=== PATIENT | male | born 1995 | race Caucasian/White ===

== ENCOUNTER → 2023-01-17 15:12 | Outpatient (CLI) | payer BC, SELFPAY ==
--- NOTE | ~2023-01-17 | MR_ITS ---
EXAMINATION: MR shoulder LT wo con DATE: 01/17/2023 15:56 INDICATION: left shoulder dislocation . TECHNIQUE: Magnetic resonance imaging (MRI) of the left shoulder was performed without intravenous co ntrast. Sequences included axial PD-weighted FS FSE, coronal oblique PD-weighted FS FSE and T2-weight ed FS FSE, and sagittal oblique T2-weighted FS FSE and T1-weighted FSE. COMPARISON: None. FINDINGS: Coracoacromial arch: Mild lateral downsloping of the type I acromion. Mild acromial tip enthesopathy. Mild subacromial abdoul rowing. Rotator cuff: Intact. Biceps tendon and glenoid labrum: The long and short heads of the biceps are intact. Large anterior glenoid tear anterosuperior and ant erior inferior quadrants with avulsion of the anterior periosteum. Likely old posterior inferior nanette oid tear, filled by granulation tissue. Irregularly and thickening of the inferior glenohumeral ligam ent and capsule. Fluid: Moderate volume glenohumeral joint fluid. Bones/cartilage: Displaced osseous fragment at the anterior inferior corner of the glenoid, spanning 7:00 to 10:00, re presenting an osseous Bankart lesion fragment. Hill-Sachs deformity in the humeral head. Diffuse nanette ohumeral cartilage thinning and mild osteophytosis. IMPRESSION: 1. Osseous and soft tissue Bankart lesions. 2. Hill-Sachs deformity. 3. Likely tears of the inferior glenohumeral ligament and inferior capsule. 3. Moderate glenohumeral joint effusion. 4. Mild glenohumeral osteoarthritis. Reviewed, dictated and finalized at location K.
== END ==
PROVIDERS: PCP Nurse Practitioner Family; Visit Provider Nurse Practitioner Family
DX: S43.005A Unspecified dislocation of left shoulder joint, initial encounter (principal); M79.89 Other specified soft tissue disorders; S42.292A Other displaced fracture of upper end of left humerus, initial encounter for closed fracture; M25.412 Effusion, left shoulder; M19.012 Primary osteoarthritis, left shoulder
CPT/HCPCS: 73221